=== PATIENT | female | born 1990 | race Caucasian/White ===

== ENCOUNTER 2018-05-15 16:32 | Outpatient (CLI) | payer OTHER | END 2018-05-15 17:30 | disposition home or self-care (01) | LOC: M LDO 16:32 | DX: O99.89 Other specified diseases and conditions complicating pregnancy, childbirth and the puerperium (principal); Z3A.32 32 weeks gestation of pregnancy; R11.2 Nausea with vomiting, unspecified | CPT/HCPCS: 59025 ==

== ENCOUNTER 2018-06-28 21:47 | Outpatient (CLI) | payer OTHER | END 2018-06-28 22:50 | disposition home or self-care (01) | LOC: M LDO 21:47 | DX: O47.1 False labor at or after 37 completed weeks of gestation (principal); Z3A.38 38 weeks gestation of pregnancy | CPT/HCPCS: 59025 ==

== ENCOUNTER 2018-07-11 03:46 | Inpatient (IN) | payer OTHER ==
[2018-07-11 04:40] LABS: HEMATOCRIT 38.8 % (36.0-47.0); HEMOGLOBIN 13.2 g/dl (12.0-15.5); MEAN CORPUSCULAR HEMOGLOBIN 29.9 pg (27.0-33.0); PLATELET COUNT, AUTOMATED 225 10^3/uL (150-450); RED BLOOD COUNT 4.41 10^6/uL (4.00-5.40); WHITE BLOOD COUNT 10.7 10^3/uL (4.0-10.0)
[2018-07-11 06:58] LABS: CORD GAS ABE V -6.5; CORD GAS HCO3 V 22.8 MEQ/L; CORD GAS PCO2 V 62.3 mmHg; CORD GAS PH V 7.182 UNITS; CORD GAS PO2 V 20.5 mmHg; CORD GAS SBC V 17.9 MEQ/L; CORD GAS TCO2 V 24.7 MEQ/L
[2018-07-11 06:59] LABS: CORD GAS ABE A -9.3; CORD GAS HCO3 A 22.3 MEQ/L; CORD GAS O2 SAT A 18.5 %; CORD GAS PCO2 A 76.9 mmHg; CORD GAS PO2 A 14.1 mmHg; CORD GAS SBC A 15.5 MEQ/L; CORD GAS TCO2 A 24.6 MEQ/L
[2018-07-11] MEDS ORDERED: OXYTOCIN 30 UNITS IN 0.9% NaCl 500ML IV BAG (J2590) As Ordered (07:20)
[2018-07-11] MEDS: LR 1,000 ML IV ×2 (07:24→15:24)
[2018-07-11] MEDS: miSOPROStol 200 MCG TAB (S0191) PR (07:30)
[2018-07-11] MEDS ORDERED: LACTATED RINGER'S 1000 ML IV (07:30)
[2018-07-11] MEDS ORDERED: MOM 30ML SUSPENSION UDC PO (07:45)
[2018-07-11] MEDS ORDERED: METHYLERGONOVINE MALEATE 0.2 MG TAB PO (07:45)
[2018-07-11] MEDS ORDERED: MEASLES,MUMPS,RUBELLA VACCINE INJ (MMR-II) (90707) SC (07:45)
[2018-07-11] MEDS ORDERED: miSOPROStol 200 MCG TAB (S0191) PR (07:45)
[2018-07-11] MEDS ORDERED: RHOGAM 300 MCG (1500 IU) INJ (J2790) IM (07:45)
[2018-07-11] MEDS: OXYTOCIN INJ 10 UNITS/ML VIAL (J2590) IV (07:45)
[2018-07-11] MEDS ORDERED: IBUPROFEN 800 MG TAB PO (07:45)
[2018-07-11] MEDS: PRENATAL VITAMINS CHEWABLE TABLET PO (08:25)
[2018-07-11] MEDS: OXYTOCIN DRIP 30 UNITS in APPROPRIATE DILUENT 1 EA IV ×3 (08:26→15:31)
[2018-07-11] MEDS: ACETAMINOPHEN 500 MG TAB PO ×2 (08:26→16:50)
[2018-07-11] MEDS: SERTRALINE HCL 50 MG TAB PO (10:26)
[2018-07-11] MEDS ORDERED: miSOPROStol 200 MCG TAB (S0191) As Ordered (14:01)
[2018-07-11] MEDS: DIBUCAINE 1% OINTMENT 30GM TOP (16:50)
[2018-07-11] MEDS: DOCUSATE SODIUM 100 MG CAP PO (17:01)
[2018-07-11] MEDS: ANUSOL HC CREAM 30GM TOP (17:01)
[2018-07-12 07:50] LABS: HEMATOCRIT 34.8 % (36.0-47.0); HEMOGLOBIN 11.7 g/dl (12.0-15.5); MEAN CORPUSCULAR HEMOGLOBIN 30.1 pg (27.0-33.0); MEAN CORPUSCULAR HGB CONC 33.6 g/dl (32.0-36.5); MEAN CORPUSCULAR VOLUME 89.5 fl (80.0-96.0); PLATELET COUNT, AUTOMATED 202 10^3/uL (150-450); RED BLOOD COUNT 3.89 10^6/uL (4.00-5.40); RED CELL DISTRIBUTION WIDTH 13.2 % (11.5-14.5); WHITE BLOOD COUNT 13.4 10^3/uL (4.0-10.0)
[2018-07-12] MEDS: SERTRALINE HCL 50 MG TAB PO (09:57)
[2018-07-12] MEDS: PRENATAL VITAMINS CHEWABLE TABLET PO (09:57)
== END 2018-07-12 13:10 | disposition home or self-care (01) | DRG 775 ==
LOC: M LDO 03:46 → M LDI 04:15 → M OBS 14:16
PROVIDERS: Obstetrics & Gynecology
PROC: 10E0XZZ Delivery of Products of Conception, External Approach (ICD-10-PCS; principal; 2018-07-11)
PROC: 0HQ9XZZ Repair Perineum Skin, External Approach (ICD-10-PCS; 2018-07-11)
DX: O48.0 Post-term pregnancy (principal); Z37.0 Single live birth; Z3A.40 40 weeks gestation of pregnancy; O69.82X0 Labor and delivery complicated by other cord entanglement, without compression, not applicable or unspecified; O77.0 Labor and delivery complicated by meconium in amniotic fluid; O70.0 First degree perineal laceration during delivery